=== PATIENT | female | born 1985 | race Caucasian/White ===

== ENCOUNTER → 2016-12-22 | Outpatient (CLI) | payer BC | LOC: FIMAGING 11:48 | PROVIDERS: ATTEND Midwife | DX: N83.292 Other ovarian cyst, left side (principal); R93.8 Abnormal findings on diagnostic imaging of other specified body structures ==

== ENCOUNTER 2017-02-08 06:04 | Day surgery (SDC) | payer BC ==
[2017-02-08] MEDS ORDERED: SILVER NITRATE APPLICATOR 1 APPL TP ONE (06:37)
[2017-02-08] MEDS ORDERED: LIDOCAINE 1% 5 ML SDV ONE (06:39)
[2017-02-08] MEDS ORDERED: LR 1,000 ML IV ONE (06:51)
[2017-02-08] MEDS ORDERED: LIDOCAINE 1% 5 ML SDV ID PRN (06:51)
[2017-02-08] MEDS ORDERED: SCOPOLAMINE HYDROBROMIDE 1.5 MG PATCH TD ONE ×2 (07:12→07:30)
[2017-02-08] MEDS ORDERED: fentaNYL 100 MCG/2 ML INJ ONE ×3 (07:24→08:34)
[2017-02-08] MEDS ORDERED: PROPOFOL/EMULSION 500 MG/50 ML BOTTLE IV ONE (07:25)
[2017-02-08] MEDS ORDERED: MIDAZOLAM 2 MG/2 ML VIAL ONE (07:29)
[2017-02-08 07:35] LABS: COLOR PALE YELLOW; LEUKOCYTE ESTERASE,URINE TRACE (NEGATIVE); NITRITE,URINE NEGATIVE (NEGATIVE)
[2017-02-08] MEDS ORDERED: DEXAMETHASONE 4 MG/ML VIAL ONE (07:43)
[2017-02-08] MEDS ORDERED: LIDOCAINE 2% 5 ML SDV ONE (07:43)
[2017-02-08] MEDS ORDERED: GLYCOPYRROLATE 0.2 MG/1 ML VIAL ONE (07:43)
[2017-02-08] MEDS ORDERED: KETOROLAC 30 MG/1 ML SDV ONE (07:44)
[2017-02-08] MEDS ORDERED: ONDANSETRON 4 MG/2 ML VIAL ONE (07:44)
[2017-02-08 07:45] LABS: BACTERIA 3+ /hpf (NONE SEEN)
--- NOTE | 2017-02-08 09:11 | GOP ---
[f rep st] OPERATIVE REPORT DATE OF OPERATION: 02/08/2017 SURGEON: Nay Lemus MD EXECUTIVE VICE PRESIDENT OF SALES: None. ANESTHESIA: General. PREOPERATIVE DIAGNOSIS: 1. Menometrorrhagia. 2. Endometrial polyp. POSTOPERATIVE DIAGNOSIS: 1. Menometrorrhagia. 2. Endometrial polyp. PROCEDURE PERFORMED: 1. Dilation and curettage. 2. Hysteroscopy with morcellation of endometrial polyps. FINDINGS: 1. Exam under anesthesia revealed an anteverted uterus and no adnexal masses. 1. Intraoperative findings revealed bilateral ostia seen clearly and a thickened endometrial lining , likely due to the timing of her cycle, and a posterior 3-5 mm polyp in the midline. 2. SPECIMENS: Endometrial curettings with suspected endometrial polyp. ESTIMATED BLOOD LOSS: Less than 10 cc. DESCRIPTION OF PROCEDURE: The patient was taken to the operating room, where the patient was prepar ed and draped in normal sterile fashion in the dorsal lithotomy position. A weighted speculum was p laced in the patient's vagina, and a Rascon retractor used to visualize the cervix clearly. A single- toothed tenaculum was placed on the anterior lip of the cervix, and the cervix was gently dilated up to 6 mm with Hegar dilators. A 0-degree 5 mm Truclear hysteroscope was placed into the cervix and advanced into the uterine cavity easily without complications. Bilateral ostia were seen clearly, a nd good visualization was obtained. The lining did appear thickened and fluffy with a round, white polyp, arising from the posterior wall of the uterus. The 2.9 morcellator was then used to excise t he polyp easily and do a visual curettage using the morcellator. The instruments were then removed from the cervix. A sharp curettage was then performed with a small amount of additional tissue obta ined. The instruments were then removed from the vagina, and hemostasis was obtained at the tenacul um site with silver nitrate. All instruments were removed from the vagina. The patient was taken t o the PACU in stable and good condition, after being woken from anesthesia. All sponge counts were correct x2. COMPLICATIONS: None. IV FLUIDS: 750 cc. URINE OUTPUT: None, as patient voided immediately prior to surgery. FLUID DEFICIT: 70 cc. /[id number]/MODL
[2017-02-08] MEDS ORDERED: HYDROCODONE/APAP 5/325 TAB ONE ×2 (09:32→10:11)
== END 2017-02-08 10:30 | disposition home or self-care (01) ==
LOC: FSGY 06:04
PROVIDERS: ATTEND Obstetrics & Gynecology
PROC: 0UDB8ZX Extraction of Endometrium, Via Natural or Artificial Opening Endoscopic, Diagnostic (ICD-10-PCS; principal; 2017-02-08 07:30)
PROC: 0UB98ZX Excision of Uterus, Via Natural or Artificial Opening Endoscopic, Diagnostic (ICD-10-PCS; principal; 2017-02-08 07:30)
DX: N92.1 Excessive and frequent menstruation with irregular cycle (principal); N84.0 Polyp of corpus uteri
CPT/HCPCS: 58120; 58558; C1782; J1100; J1885; J2250; J2405; J2704; J3010